=== PATIENT | female | born 1965 | race Caucasian/White ===

== ENCOUNTER → 2023-09-11 | Outpatient (CLI) | payer BC ==
[2023-09-11 08:24] LABS: BASOPHILS % (AUTO) 0.7 % (0-1); EOSINOPHILS # (AUTO) 0.1 X10'3 (0-0.9); EOSINOPHILS % (AUTO) 2.1 % (0-6); HEMATOCRIT 45.4 % (35.0-45.0); HEMOGLOBIN 15.8 g/dl (12.0-16.0); LYMPHOCYTES # (AUTO) 1.9 X10'3 (1.1-4.8); LYMPHOCYTES % (AUTO) 33.7 % (21-51); MEAN CORPUSCULAR HEMOGLOBIN 32.7 PG (27.0-31.0); MEAN CORPUSCULAR HGB CONC 34.8 g/dL (33.0-36.5); MONOCYTES # (AUTO) 0.6 X10'3 (0-0.9); MONOCYTES % (AUTO) 11.1 % (2-12); NEUTROPHILS % (AUTO) 52.4 % (42-75); PLATELET COUNT 296 X10'3 (140-440); RED BLOOD COUNT 4.82 X10'6 (4.20-5.60); RED CELL DISTRIBUTION WIDTH 12.5 % (11.5-14.5); WHITE BLOOD COUNT 5.6 X10'3 (4.5-11.0)
[2023-09-11 08:43] LABS: ALANINE AMINOTRANSFERASE 25 U/L (12-78); ALBUMIN 3.8 G/DL (3.4-5.0); ALBUMIN/GLOBULIN RATIO 0.9 (1.1-1.5); ALKALINE PHOSPHATASE 67 IU/L (46-116); ANION GAP 9 (8-16); ASPARTATE AMINO TRANSFERASE 29 U/L (10-37); BILIRUBIN,TOTAL 0.7 MG/DL (0.1-1.0); BLOOD UREA NITROGEN 14 MG/DL (7-18); BUN/CREATININE RATIO 16.3 (10.0-20.0); CALCIUM 9.1 MG/DL (8.5-10.1); CHLORIDE 104 MMOL/L (99-107); CHOL/HDL RATIO 3.3 (0.00-4.99); CHOLESTEROL 211 MG/DL (0-200); CREATININE 0.86 MG/DL (0.40-0.90); FREE T4 (FREE THYROXINE) 0.84 NG/DL (0.73-1.40); GLUCOSE 99 MG/DL (70-104); HDL CHOLESTEROL 64 MG/DL (35-60); LDL CHOLESTEROL 110 MG/DL (50-100); POTASSIUM 3.8 MMOL/L (3.5-5.1); SODIUM 141 MMOL/L (135-145); THYROID STIMULATING HORMONE 3.76 ulU/ml (0.34-4.50); TRIGLYCERIDES 107 MG/DL (20-135); eGFR 67 ML/MIN
[2023-09-12 08:21] LABS: VITAMIN D, 25-HYDROXY 57.8 ng/mL (30.0-100.0)
== END | disposition home or self-care (01) ==
LOC: RAD 07:32
PROVIDERS: ATTEND Nurse Practitioner Family
DX: Z13.0 Encounter for screening for diseases of the blood and blood-forming organs and certain disorders involving the immune mechanism (principal); Z13.1 Encounter for screening for diabetes mellitus; Z13.220 Encounter for screening for lipoid disorders; K82.4 Cholesterolosis of gallbladder; R16.0 Hepatomegaly, not elsewhere classified; R63.4 Abnormal weight loss; R63.30 Feeding difficulties, unspecified; E03.9 Hypothyroidism, unspecified; I10 Essential (primary) hypertension; E55.9 Vitamin D deficiency, unspecified
CPT/HCPCS: 36415; 76700; 80053; 80061; 82306; 82607; 83036; 84439; 84443; 84481; 84482; 85025

== ENCOUNTER 2024-04-02 08:20 | Outpatient (CLI) | payer OTHER | END 2024-04-02 23:59 | disposition home or self-care (01) | LOC: MRI 08:20 | PROVIDERS: ATTEND Nurse Practitioner | DX: S69.92XA Unspecified injury of left wrist, hand and finger(s), initial encounter (principal); S66.912A Strain of unspecified muscle, fascia and tendon at wrist and hand level, left hand, initial encounter; M25.742 Osteophyte, left hand; M19.042 Primary osteoarthritis, left hand; X58.XXXA Exposure to other specified factors, initial encounter; Y93.89 Activity, other specified; Y92.89 Other specified places as the place of occurrence of the external cause; Y99.8 Other external cause status | CPT/HCPCS: 73218 ==

== ENCOUNTER 2024-09-23 08:39 | Emergency (ER) | payer BC ==
[~2024-09-23] VITALS: Ht 139.7 cm; Wt 73.0 kg
[2024-09-23] MEDS: dexamethasone sod phosphate 10mg/ml inj IM ONE (10:28)
[2024-09-23] MEDS ORDERED: PRED20TA PO (11:35)
[2024-09-23] MEDS ORDERED: BENZ-38 PO (11:35)
[2024-09-23] MEDS ORDERED: ALBU8HFA INH (11:35)
[2024-09-23 11:45] VITALS: BP 136/85; PULSE 72; RESP 16; TEMP 98.2; O2SAT 97
== END 2024-09-23 11:50 | disposition home or self-care (01) ==
LOC: ER 08:39
DX: J10.1 Influenza due to other identified influenza virus with other respiratory manifestations (principal); Z88.1 Allergy status to other antibiotic agents; Z79.899 Other long term (current) drug therapy; Z20.822 Contact with and (suspected) exposure to COVID-19
CPT/HCPCS: 36415; 71045; 87502; 87503; 87811; 96372; 99284; J1100

== ENCOUNTER 2024-09-27 04:54 | Emergency (ER) | payer BC ==
[~2024-09-27] VITALS: Ht 124.5 cm; Wt 73.7 kg
[~2024-09-27 04:54] MED LIST: ALBU8HFA INH; BENZ-38 PO; PRED20TA PO
[2024-09-27] MEDS ORDERED: iohexol 300 MG/1 ML 50ml polymer ONE (07:31)
[2024-09-27] MEDS ORDERED: iohexol 300mg/ml 100ml inj. ONE (07:31)
[2024-09-27 07:51] LABS: BASOPHILS % (AUTO) 0.2 % (0-1); EOSINOPHILS % (AUTO) 0.3 % (0-6); HEMATOCRIT 40.2 % (35.0-45.0); HEMOGLOBIN 14.2 g/dl (12.0-16.0); LYMPHOCYTES # (AUTO) 2.1 X10'3 (1.1-4.8); LYMPHOCYTES % (AUTO) 20.7 % (21-51); MEAN CORPUSCULAR HEMOGLOBIN 32.3 PG (27.0-31.0); MEAN CORPUSCULAR HGB CONC 35.4 g/dL (33.0-36.5); MEAN CORPUSCULAR VOLUME 91.4 FL (78-98); MEAN PLATELET VOLUME 7.2 FL (7.4-10.4); MONOCYTES # (AUTO) 1.2 X10'3 (0-0.9); MONOCYTES % (AUTO) 11.6 % (2-12); NEUTROPHILS # (AUTO) 6.8 X10'3 (1.8-7.7); NEUTROPHILS % (AUTO) 67.2 % (42-75); PLATELET COUNT 276 X10'3 (140-440); RED CELL DISTRIBUTION WIDTH 11.8 % (11.5-14.5); WHITE BLOOD COUNT 10.2 X10'3 (4.5-11.0)
[2024-09-27 07:55] LABS: ALBUMIN 3.1 G/DL (3.4-5.0); ANION GAP 7 (8-16); BLOOD UREA NITROGEN 12 MG/DL (7-18); BUN/CREATININE RATIO 15.4 (10.0-20.0); CALCIUM 8.3 MG/DL (8.5-10.1); CHLORIDE 103 MMOL/L (99-107); CREATININE 0.78 MG/DL (0.40-0.90); GLUCOSE 96 MG/DL (70-104); POTASSIUM 3.1 MMOL/L (3.5-5.1); SODIUM 141 MMOL/L (135-145); TOTAL CARBON DIOXIDE 31.4 MMOL/L (24-32); eCRCL 24 ML/MIN; eGFR 75 ML/MIN
[2024-09-27] MEDS: acetaminophen 1,000mg/100ml IV 100 ML IV STA (08:47)
[2024-09-27] MEDS ORDERED: POTA-192 PO (09:35)
[2024-09-27] MEDS ORDERED: AMOX-580 PO (09:35)
[2024-09-27 09:56] VITALS: BP 126/79; PULSE 75; RESP 14; TEMP 98.5; O2SAT 97
[2024-09-27] MEDS ORDERED: acetaminophen 1,000mg/100ml IV 100 ML IV SCH ×2 (14:00)
== END 2024-09-27 09:45 | disposition home or self-care (01) ==
LOC: ER 04:54
DX: K11.20 Sialoadenitis, unspecified (principal); E87.6 Hypokalemia; Z88.1 Allergy status to other antibiotic agents; Z79.899 Other long term (current) drug therapy
CPT/HCPCS: 36415; 70491; 71260; 80048; 83605; 84484; 85025; 96374; 99285; J0131; Q9967; 96365

== ENCOUNTER 2024-10-18 07:24 | Outpatient (CLI) | payer BC ==
[~2024-10-18 07:24] MED LIST changes: +AMOX-580 PO; +POTA-192 PO; -PRED20TA PO
[2024-10-18 07:59] LABS: BASOPHILS % (AUTO) 0.3 % (0-1); EOSINOPHILS # (AUTO) 0.2 X10'3 (0-0.9); EOSINOPHILS % (AUTO) 3.6 % (0-6); HEMATOCRIT 44.1 % (35.0-45.0); HEMOGLOBIN 15.2 g/dl (12.0-16.0); LYMPHOCYTES # (AUTO) 1.6 X10'3 (1.1-4.8); LYMPHOCYTES % (AUTO) 33.4 % (21-51); MEAN CORPUSCULAR HEMOGLOBIN 31.7 PG (27.0-31.0); MEAN CORPUSCULAR HGB CONC 34.5 g/dL (33.0-36.5); MEAN CORPUSCULAR VOLUME 92.1 FL (78-98); MEAN PLATELET VOLUME 7.9 FL (7.4-10.4); MONOCYTES # (AUTO) 0.5 X10'3 (0-0.9); MONOCYTES % (AUTO) 10.2 % (2-12); NEUTROPHILS # (AUTO) 2.6 X10'3 (1.8-7.7); NEUTROPHILS % (AUTO) 52.5 % (42-75); PLATELET COUNT 290 X10'3 (140-440); RED BLOOD COUNT 4.79 X10'6 (4.20-5.60); RED CELL DISTRIBUTION WIDTH 12.7 % (11.5-14.5); WHITE BLOOD COUNT 4.9 X10'3 (4.5-11.0)
[2024-10-18 08:26] LABS: ALANINE AMINOTRANSFERASE 33 U/L (12-78); ALBUMIN 3.7 G/DL (3.4-5.0); ALBUMIN/GLOBULIN RATIO 0.9 (1.1-1.5); ALKALINE PHOSPHATASE 100 IU/L (46-116); ANION GAP 8 (8-16); ASPARTATE AMINO TRANSFERASE 33 U/L (10-37); BILIRUBIN,TOTAL 0.5 MG/DL (0.1-1.0); BLOOD UREA NITROGEN 15 MG/DL (7-18); BUN/CREATININE RATIO 24.6 (10.0-20.0); CALCIUM 9.1 MG/DL (8.5-10.1); CHLORIDE 105 MMOL/L (99-107); CHOL/HDL RATIO 3.1 (0.00-4.99); CHOLESTEROL 235 MG/DL (0-200); CREATININE 0.61 MG/DL (0.40-0.90); FREE T4 (FREE THYROXINE) 0.87 NG/DL (0.73-1.40); GLUCOSE 96 MG/DL (70-104); HDL CHOLESTEROL 75 MG/DL (35-60); LDL CHOLESTEROL 140 MG/DL (50-100); SODIUM 141 MMOL/L (135-145); TOTAL CARBON DIOXIDE 28.5 MMOL/L (24-32); TOTAL PROTEIN 7.8 G/DL (6.4-8.2); TRIGLYCERIDES 92 MG/DL (20-135); eGFR > 90 ML/MIN
[2024-10-18 08:33] LABS: HEMOGLOBIN A1C 5.4 % (4.5-6.2)
[2024-10-19 08:22] LABS: ESTRADIOL <5.0 pg/mL (0.0-54.7); PROGESTERONE <0.1 ng/mL (.); TESTOSTERONE, SERUM 14 ng/dL (3-67); VITAMIN D, 25-HYDROXY 51.5 ng/mL (30.0-100.0)
== END 2024-10-18 23:59 | disposition home or self-care (01) ==
LOC: LAB 07:24
PROVIDERS: ATTEND Nurse Practitioner Family
DX: I10 Essential (primary) hypertension (principal); E03.9 Hypothyroidism, unspecified; E55.9 Vitamin D deficiency, unspecified; R53.83 Other fatigue
CPT/HCPCS: 36415; 80053; 80061; 82306; 82670; 83036; 84144; 84402; 84403; 84439; 84443; 85025

== ENCOUNTER 2025-06-23 08:10 | Day surgery (SDC) | payer OTHER ==
[~2025-06-23] VITALS: Ht 149.9 cm; Wt 72.6 kg
[2025-06-23] VITALS (8 sets, daily range): BP systolic 108–134; BP diastolic 71–80; PULSE 52–60; RESP 9–17; TEMP 97.5; O2SAT 95–100
[2025-06-23] MEDS: DOCUMENT DATE & TIME OF BETA-BLOCKER PO ONE (04:45)
[~2025-06-23 08:10] MED LIST changes: -ALBU8HFA INH; +AMLO2.5T2 PO; -AMOX-580 PO; +ATEN-169 PO; -BENZ-38 PO; +BUPIVAcaine/PF 2.5mg/ml (0.25%) 10ml vial ONE; +IMMUNE COMPLEX PO; +LIDOcaine 2% (20mg/ml) 5ml vial ONE; +LIVER COMPLEX PO; +LORA-268 PO; -POTA-192 PO; +THY60T PO; +VITA-321 PO; +[UNRECOGNIZED DRUG - OTHER] PO
[2025-06-23] MEDS: ringers solution, lacted 1,000 ML IV SCH (09:57)
[2025-06-23] MEDS: ceFAZolin 2gm/dext,iso 50mL 50 ML IV ONE (09:57)
[2025-06-23 10:05] LABS: MEAN PLATELET VOLUME 8.3 FL (7.4-10.4); RED CELL DISTRIBUTION WIDTH 12.2 % (11.5-14.5)
[2025-06-23] MEDS ORDERED: midazolam 1 mg/ML 2ml injection ONE (10:15)
[2025-06-23] MEDS ORDERED: fentaNYL/PF 50MCG/1 ML 2ML syringe ONE (10:15)
[2025-06-23 10:18] LABS: CREATININE 0.59 MG/DL (0.40-0.90); TOTAL CARBON DIOXIDE 28.4 MMOL/L (24-32); eCRCL 67 ML/MIN; eGFR > 90 ML/MIN
[2025-06-23] MEDS: BUPIVAcaine/PF 2.5mg/ml (0.25%) 10ml vial IJ ONE (10:30)
[2025-06-23] MEDS ORDERED: propofol inj 20 ML IV ONE (10:32)
[2025-06-23] MEDS: acetaminophen w/codeine (30MG) #3 tablet PO ONE (11:26)
--- NOTE | 2025-06-23 13:01 | OPERATIVE REPORT ---
Operative Report Providers to ~ Date of Procedure: Jun 23, 2025 Pre-Operative Diagnosis: Left wrist de Quervain's and trigger thumb Post-Operative Diagnosis Left wrist de Quervain tenosynovitis and left thumb trigger thumb Procedure Performed Incision and tendon sheath left wrist 1st dorsal compartment and incision of tendon sheath A1 bernice left thumb Surgeon: Clint Mar MD [employer] Drafter None Anesthesiologist: Kelechi Knox Type of Anesthesia: Other (Local anesthesia with IV sedation) Findings: Estimated Blood Loss: None Specimen Removed: None Description of Procedure: The patient is a 60 year old with a left sided radial wrist pain in the first dorsal compartment. She also has a symptomatic trigger thumb on the ipsilateral thumb. Surgery is indicated to improve function and relieve pain. The risks, benefits, expected results, and possible complications of the planned procedure had been explained to the patient and informed consent obtained. In the operating room, the arm was prepped and draped in the usual manner. Proper timeout procedure was observed.Local anesthetic was infiltrated proximal to the planned incision site. The tourniquet was raised on the forearm to 250mmHg. A transverse incision was made just distal to the radial styloid, through skin only. Radial sensory nerve branches were mobilized and preserved. The tendon sheath was released from distal to proximal along its dorsal edge. The tendons were inspected and were free of any lesions. The sheath retained its volar flap. The wound was irrigated and closed with nylon suture, Attention was then turned to the palmar side of the thumb. A transverse incision was made at the volar MCP crease over the flexor tendon. Blunt dissection was done deeper, mobilizing and protecting the neurovascular bundles. The tendon sheath was opened midline, releasing the A1 bernice. The tendon was retracted and inspected , no lesions were identified. The wound was irrigated and closed with Nylon suture, and a sterile dressing was applied. A thumb spica plaster splint was also applied. The tourniquet was released and the hand perfused well, patient was taken to the recovery room in stable condition. CLINT MAR Jr., MD Jun 23, 2025 13:01
== END 2025-06-23 11:35 | disposition home or self-care (01) ==
LOC: PAS 08:10
PROVIDERS: ATTEND Orthopaedic Surgery Hand Surgery
DX: M65.312 Trigger thumb, left thumb (principal); M65.4 Radial styloid tenosynovitis [de Quervain]; I10 Essential (primary) hypertension; E11.9 Type 2 diabetes mellitus without complications; E03.9 Hypothyroidism, unspecified; J45.909 Unspecified asthma, uncomplicated; F41.9 Anxiety disorder, unspecified; G47.30 Sleep apnea, unspecified; Z87.891 Personal history of nicotine dependence; Z79.890 Hormone replacement therapy; Z79.899 Other long term (current) drug therapy; Z90.710 Acquired absence of both cervix and uterus; Z98.51 Tubal ligation status; Z98.890 Other specified postprocedural states; Z88.1 Allergy status to other antibiotic agents; Z88.2 Allergy status to sulfonamides; Z88.8 Allergy status to other drugs, medicaments and biological substances
CPT/HCPCS: 25000; 26055; 36415; 80053; 82948; 85025; J2003; J2250; J2704; J3010; J3490; J7030; J7120; Z7506; Z7512; A4215; A6449